=== PATIENT | female | born 1970 | race Caucasian/White ===

== ENCOUNTER 2019-03-16 09:27 | Observation (INO) | payer BC ==
[2019-03-16] MEDS ORDERED: ONDANSETRON 4 MG/2 ML VIAL IVP STA (09:35)
[2019-03-16] MEDS ORDERED: SODIUM CHLORIDE 0.9% 1,000 ML IV STA (09:35)
[2019-03-16] MEDS ORDERED: HYDROmorphone 0.5 MG/0.5 ML SYRINGE IVP STA (09:35)
--- NOTE | 2019-03-16 09:46 | ED ---
Abdominal Pain HPI - General Source: patient, RN notes reviewed Mode of arrival: ambulatory Limitations: no limitations <Maurice Newman - Last Filed: 03/16/19 12:06> <Quinn Mohr - Last Filed: 03/16/19 12:17> - General Chief Complaint: Abdominal Pain Stated Complaint: Abd pain Time Seen by Provider: 03/16/19 09:35 - History of Present Illness Initial Comments: 48-year-old female presents emergency Department chief complaint of right upper quadrant abdominal pain. Patient states she has severe pain since last . Patient was seen at [facility] on Wednesday and was told that she had gallstones. She did have a CAT scan and x-rays. Patient does admit to some dry heaving ongoing nausea. Patient states that she cannot tolerate the pain she's been taking pain meds at home. Patient states pains is unbearable. Patient reports no fevers or chills she states pain radiates into her back and up. Patient had a prior appendectomy and hysterectomy 22 years ago. Patient denies any other complaints. (Maurice Newman) - Related Data Home Medications Medication Instructions Recorded Confirmed HYDROcodone/APAP 7.5-325MG [[place] 1 tab PO Q4H PRN 03/16/19 03/16/19 7.5-325] Ibuprofen [Motrin] 600 mg PO Q6H PRN 03/16/19 03/16/19 Allergies Allergy/AdvReac Type Severity Reaction Status Date / Time No Known Allergies Allergy Verified 03/16/19 09:50 Review of Systems ROS Other: All systems not noted in ROS Statement are negative. <Maurice Newman - Last Filed: 03/16/19 12:06> ROS Other: All systems not noted in ROS Statement are negative. <Quinn Mohr - Last Filed: 03/16/19 12:17> ROS Statement: Those systems with pertinent positive or pertinent negative responses have been documented in the HPI. Past Medical History Past Medical History: No Reported History History of Any Multi-Drug Resistant Organisms: None Reported Past Surgical History: Appendectomy, Hysterectomy Past Psychological History: No Psychological Hx Reported Smoking Status: Former smoker Past Alcohol Use History: None Reported Past Drug Use History: Marijuana <Maurice Newman - Last Filed: 03/16/19 12:06> General Exam Limitations: no limitations General appearance: alert, in no apparent distress Head exam: Present: atraumatic, normocephalic, normal inspection Neck exam: Present: normal inspection. Absent: tenderness, meningismus, lymphadenopathy Respiratory exam: Present: normal lung sounds bilaterally. Absent: respiratory distress, wheezes, rales, rhonchi, stridor Cardiovascular Exam: Present: regular rate, normal rhythm, normal heart sounds. Absent: systolic murmur, diastolic murmur, rubs, gallop, clicks GI/Abdominal exam: Present: soft, tenderness (Moderate right upper quadrant tenderness), normal bowel sounds. Absent: distended, guarding, rebound, rigid Back exam: Absent: CVA tenderness (R), CVA tenderness (L) Skin exam: Present: warm, dry, intact, normal color. Absent: rash <Maurice Newman - Last Filed: 03/16/19 12:06> Course <Quinn Mohr - Last Filed: 03/16/19 12:17> Vital Signs 03/16/19 09:28 Temperature 98.5 F Pulse Rate 89 Respiratory 18 Rate Blood Pressure 204/104 O2 Sat by Pulse 98 Oximetry - Reevaluation(s) Reevaluation #1: 03/16/19 12:16 PA supervision: I proceeded [id number] evaluation the patient and did discuss findings with her and her . Patient does have right upper quadrant pain did have evidence of cholelithiasis. There was a mild dilatation, bile duct of 6.4 mm. I did discuss case with Dr. Alvarez. Patient will be admitted to Dr. Alan's service (Quinn Mohr) Medical Decision Making - Lab Data Result diagrams: 03/16/19 09:49 03/16/19 09:49 <Maurice Newman - Last Filed: 03/16/19 12:06> - Lab Data Result diagrams: 03/16/19 09:49 03/16/19 09:49 <Quinn Mohr - Last Filed: 03/16/19 12:17> - Medical Decision Making 48-year-old female presented for abdominal pain. Patient has had intractable abdominal pain from gallstones. Patient had repeat ultrasound which shows mildly dilated common bile duct, gallstones and fatty liver disease. Dr. Mohr did discuss the case with Dr. Alvarez who will admit the patient (Dedoe,Maurice M) - Lab Data Lab Results 03/16/19 03/16/19 03/16/19 Range/Units 09:49 09:49 09:49 WBC 7.0 (3.8-10.6) k/uL RBC 5.16 (3.80-5.40) m/uL Hgb 16.1 H (11.4-16.0) gm/dL Hct 46.9 H (34.0-46.0) % MCV 90.9 (80.0-100.0) fL MCH 31.2 (25.0-35.0) pg MCHC 34.3 (31.0-37.0) g/dL RDW 13.0 (11.5-15.5) % Plt Count 224 (150-450) k/uL Neutrophils % 62 % Lymphocytes % 30 % Monocytes % 4 % Eosinophils % 2 % Basophils % 1 % Neutrophils # 4.3 (1.3-7.7) k/uL Lymphocytes # 2.1 (1.0-4.8) k/uL Monocytes # 0.3 (0-1.0) k/uL Eosinophils # 0.1 (0-0.7) k/uL Basophils # 0.0 (0-0.2) k/uL Sodium 142 (137-145) mmol/L Potassium 4.4 (3.5-5.1) mmol/L Chloride 105 (98-107) mmol/L Carbon Dioxide 29 (22-30) mmol/L Anion Gap 8 mmol/L BUN 14 (7-17) mg/dL Creatinine 0.76 (0.52-1.04) mg/dL Est GFR (CKD-EPI)AfAm >90 (>60 ml/min/1.73 sqM) Est GFR (CKD-EPI)NonAf >90 (>60 ml/min/1.73 sqM) Glucose 128 H (74-99) mg/dL Plasma Lactic Acid Jon 1.3 (0.7-2.0) mmol/L Calcium 10.2 (8.4-10.2) mg/dL Total Bilirubin 0.6 (0.2-1.3) mg/dL AST 23 (14-36) U/L ALT 34 (9-52) U/L Alkaline Phosphatase 62 (38-126) U/L Total Protein 7.8 (6.3-8.2) g/dL Albumin 4.7 (3.5-5.0) g/dL Amylase 75 (30-110) U/L Lipase 100 (23-300) U/L Urine Color Urine Appearance (Clear) Urine pH (5.0-8.0) Ur Specific [place] (1.001-1.035) Urine Protein (Negative) Urine Glucose (UA) (Negative) Urine Ketones (Negative) Urine Blood (Negative) Urine Nitrite (Negative) Urine Bilirubin (Negative) Urine Urobilinogen (<2.0) mg/dL Ur Leukocyte Esterase (Negative) Urine RBC (0-5) /hpf Urine WBC (0-5) /hpf Ur Squamous Epith Cells (0-4) /hpf Urine Mucus (None) /hpf 03/16/19 Range/Units 09:49 WBC (3.8-10.6) k/uL RBC (3.80-5.40) m/uL Hgb (11.4-16.0) gm/dL Hct (34.0-46.0) % MCV (80.0-100.0) fL MCH (25.0-35.0) pg MCHC (31.0-37.0) g/dL RDW (11.5-15.5) % Plt Count (150-450) k/uL Neutrophils % % Lymphocytes % % Monocytes % % Eosinophils % % Basophils % % Neutrophils # (1.3-7.7) k/uL Lymphocytes # (1.0-4.8) k/uL Monocytes # (0-1.0) k/uL Eosinophils # (0-0.7) k/uL Basophils # (0-0.2) k/uL Sodium (137-145) mmol/L Potassium (3.5-5.1) mmol/L Chloride (98-107) mmol/L Carbon Dioxide (22-30) mmol/L Anion Gap mmol/L BUN (7-17) mg/dL Creatinine (0.52-1.04) mg/dL Est GFR (CKD-EPI)AfAm (>60 ml/min/1.73 sqM) Est GFR (CKD-EPI)NonAf (>60 ml/min/1.73 sqM) Glucose (74-99) mg/dL Plasma Lactic Acid Jon (0.7-2.0) mmol/L Calcium (8.4-10.2) mg/dL Total Bilirubin (0.2-1.3) mg/dL AST (14-36) U/L ALT (9-52) U/L Alkaline Phosphatase (38-126) U/L Total Protein (6.3-8.2) g/dL Albumin (3.5-5.0) g/dL Amylase (30-110) U/L Lipase (23-300) U/L Urine Color Yellow Urine Appearance Clear (Clear) Urine pH 6.5 (5.0-8.0) Ur Specific [place] 1.022 (1.001-1.035) Urine Protein Trace H (Negative) Urine Glucose (UA) Negative (Negative) Urine Ketones Negative (Negative) Urine Blood Small H (Negative) Urine Nitrite Negative (Negative) Urine Bilirubin Negative (Negative) Urine Urobilinogen <2.0 (<2.0) mg/dL Ur Leukocyte Esterase Negative (Negative) Urine RBC 8 H (0-5) /hpf Urine WBC <1 (0-5) /hpf Ur Squamous Epith Cells 6 H (0-4) /hpf Urine Mucus Rare H (None) /hpf Disposition <Maurice Newman - Last Filed: 03/16/19 12:06> <Quinn Mohr - Last Filed: 03/16/19 12:17> Clinical Impression: Intractable abdominal pain, Cholelithiasis Disposition: ADMITTED IP TO THIS HOSP Condition: Stable Referrals: Quinn Lambert MD [Primary Care Provider] - 1-2 days
[2019-03-16 10:07] LABS: Basophils % (A) 1 %; Eosinophils # (A) 0.1 k/uL (0-0.7); Eosinophils % (A) 2 %; HCT 46.9 % (34.0-46.0); HGB 16.1 gm/dL (11.4-16.0); Lymphocytes # (A) 2.1 k/uL (1.0-4.8); Lymphocytes % (A) 30 %; MCH 31.2 pg (25.0-35.0); MCHC 34.3 g/dL (31.0-37.0); MCV 90.9 fL (80.0-100.0); Mean Platelet Volume 7.6; Monocytes # (A) 0.3 k/uL (0-1.0); Monocytes % (A) 4 %; Neutrophils # (A) 4.3 k/uL (1.3-7.7); Neutrophils % (A) 62 %; Platelet Count 224 k/uL (150-450); RBC 5.16 m/uL (3.80-5.40)
[2019-03-16 10:16] LABS: Appearance,Urine Clear (Clear); Bilirubin,Urine Negative (Negative); Blood,Urine Small (Negative); Color,Urine Yellow; Glucose,Urine (UA) Negative (Negative); Ketones,Urine Negative (Negative); Leukocyte Esterase,Urine Negative (Negative); Mucus,Urine Rare /hpf; Nitrite,Urine Negative (Negative); PH, Urine 6.5 (5.0-8.0); Protein,Urine Trace (Negative); RBC,Urine 8 /hpf (0-5); Specific Gravity,Urine 1.022 (1.001-1.035); Squamous Epithelial Cell,Urine 6 /hpf (0-4); Urobilinogen,Urine <2.0 mg/dL (<2.0)
[2019-03-16 10:20] LABS: ALT 34 U/L (9-52); AST 23 U/L (14-36); Albumin 4.7 g/dL (3.5-5.0); Alkaline Phosphatase 62 U/L (38-126); Amylase 75 U/L (30-110); Anion Gap 8 mmol/L; Blood Urea Nitrogen 14 mg/dL (7-17); Calcium 10.2 mg/dL (8.4-10.2); Carbon Dioxide 29 mmol/L (22-30); Chloride 105 mmol/L (98-107); Glucose 128 mg/dL (74-99); Lipase 100 U/L (23-300); Potassium 4.4 mmol/L (3.5-5.1); Sodium 142 mmol/L (137-145); Total Bilirubin 0.6 mg/dL (0.2-1.3); Total Protein 7.8 g/dL (6.3-8.2)
--- NOTE | 2019-03-16 11:04 | US ---
EXAMINATION TYPE: US gallbladder DATE OF EXAM: 03/16/2019 COMPARISON: NONE CLINICAL HISTORY: 48-year-old female Pain. Epigastric and RUQ pain x 1 day. Hx appendectomy. TECHNIQUE: Multiple sonographic images of the right upper quadrant are obtained. FINDINGS: EXAM MEASUREMENTS: Liver Length: 19.4 cm Gallbladder Wall: 0.29 cm CBD: 0.64 cm Right Kidney: 11.7 x 7.5 x 5.6 cm Appeals And Generalist Clerk notes:Limited due to body habitus and overlying gas. Pancreas: Limited due to gas. Liver: Enlarged. Markedly increased echogenicity and far field attenuation. This secondarily limits a ssessment for focal lesion. Gallbladder: 1.9 cm dependent gallstone with shadowing. No abnormal gallbladder distention or surroun ding fluid. Gallbladder wall thickness is 2.9 mm, upper limits of normal. Evidence for sonographic Gama's sign: Yes CBD: Borderline distended. Right Kidney: No hydronephrosis. IMPRESSION: 1. Hepatomegaly (19.4 cm) with severe hepatic steatosis. Correlate with LFTs, lipid profile, and kenyatta ent risk factors. 2. Bile duct is borderline to mildly dilated at 6.4 mm. Correlate with alkaline phosphatase and bilir ubin levels. 3. Cholelithiasis. No ancillary findings of acute cholecystitis. However, sonographic Gama sign is reported positive. This could reflect referred pain. If concern for early acute cholecystitis, follow -up HIDA scan.
[2019-03-16] MEDS ORDERED: NALOXONE 0.4 MG/ML 1 ML VIAL IV PRN (12:08)
[2019-03-16] MEDS ORDERED: HYDROmorphone 1 MG/ML 1 ML SYRINGE IVP PRN (12:08)
[2019-03-16] MEDS ORDERED: HYDROmorphone 0.5 MG/0.5 ML SYRINGE IVP PRN (12:08)
[2019-03-16] MEDS ORDERED: DEXAMETHASONE SOD PHOS (MDV) 100 MG/10 ML VIAL IV ONE (12:08)
[2019-03-16] MEDS ORDERED: ONDANSETRON 4 MG/2 ML VIAL IVP PRN ×2 (12:08→13:03)
[2019-03-16] MEDS ORDERED: PIPERACILLIN-TAZOBACTAM 3.375 GM in SODIUM CHLORIDE 0.9% 100 ML IVPB STA (12:09)
[2019-03-16] MEDS ORDERED: SCOPOLAMINE 1.5MG/72HR PATCH TRANSDERM ONE (12:10)
[2019-03-16] MEDS ORDERED: LACTATED RINGERS 1,000 ML IV ONE (12:48)
[2019-03-16] MEDS ORDERED: DEXAMETHASONE SOD PHOSPHATE 10 MG/ML 1 ML VIAL IV ONE (13:03)
[2019-03-16] MEDS ORDERED: LIDOCAINE 1% 20 ML VIAL (10MG/ML) FOR IV START INTRADERMA PRN (13:03)
[2019-03-16] MEDS ORDERED: SCOPOLAMINE 1.5MG/72HR PATCH TRANSDERM STA (13:05)
[2019-03-16] MEDS ORDERED: HEPARIN SODIUM,PORCINE 5,000 UNIT/ML 1 ML VIAL SQ ONE (13:15)
[2019-03-16] MEDS ORDERED: fentaNYL (PF) 50 MCG/ML 2 ML AMP IV ONE (13:21)
[2019-03-16] MEDS ORDERED: HYDROmorphone (PF) 1 MG/ML ONE (14:00)
[2019-03-16] MEDS ORDERED: MIDAZOLAM 2 MG/2 ML VIAL ONE (14:00)
[2019-03-16] MEDS ORDERED: NEOSTIGMINE 1 MG/ML 10 ML VIAL ONE (14:00)
[2019-03-16] MEDS ORDERED: GLYCOPYRROLATE 0.2 MG/ML 2 ML VIAL ONE (14:00)
[2019-03-16] MEDS ORDERED: fentaNYL (PF) 50 MCG/ML 2 ML AMP ONE (14:00)
[2019-03-16] MEDS ORDERED: ceFAZolin 1,000 MG VIAL ONE (14:00)
[2019-03-16] MEDS ORDERED: PROPOFOL 10 MG/ML 20 ML VIAL IV ONE (14:00)
[2019-03-16] MEDS ORDERED: LIDOCAINE 1% INJ 10MG/ML (20 ML MDV) ONE (14:00)
[2019-03-16] MEDS ORDERED: ROCURONIUM BROMIDE 10 MG/ML 10 ML VIAL IV ONE (14:00)
--- NOTE | 2019-03-16 14:02 | P.GSHP ---
History of Present Illness H&P Date: 03/16/19 Chief Complaint: Acute calculus cholecystitis 48-year-old female comes in the hospital today with increasing pain right upper quadrant. Pain began last . Last Wednesday she went to the emergency room at [facility]. She was found to have gallstones at that time. She says her pain did not really improve much over the last several days. Pain is under the right rib cage. Radiation to the back. Some nausea. Decreased appetite. No fevers. Labs checked are fairly normal. Repeat ultrasound shows a thickened wall with a positive Gama signs with gallstones. Fatty liver noted. Patient is not interested in going home and would like this addressed at this time. - Review of Systems Comment: The patient denies any acute changes in vision or hearing, no dysphagia or odynophagia, no chest pain or shortness of breath, no dysuria or hematuria, no headache, no runny nose, no rectal bleeding or melena, no unexplained weight loss Past Medical History Past Medical History: No Reported History Additional Past Medical History / Comment(s): L ankle cartlidge worn-wears a brace. History of Any Multi-Drug Resistant Organisms: None Reported Past Surgical History: Appendectomy, Hysterectomy Additional Past Surgical History / Comment(s): Colonoscopy Past Anesthesia/Blood Transfusion Reactions: No Reported Reaction Smoking Status: Former smoker - Past Family History Mother Family Medical History: Cancer Additional Family Medical History / Comment(s): Mother of renal carcinoma at the age of 72 yrs. Father Family Medical History: Skin Disorder Additional Family Medical History / Comment(s): Father of cellulitis at the age of 81 yrs. Medications and Allergies Home Medications Medication Instructions Recorded Confirmed Type HYDROcodone/APAP 7.5-325MG [[place] 1 tab PO Q4H PRN 03/16/19 03/16/19 History 7.5-325] Ibuprofen [Motrin] 600 mg PO Q6H PRN 03/16/19 03/16/19 History Allergies Allergy/AdvReac Type Severity Reaction Status Date / Time No Known Allergies Allergy Verified 03/16/19 09:50 Surgical - Exam Vital Signs Temp Pulse Resp BP Pulse Ox 98.5 F 89 18 204/104 98 03/16/19 09:28 03/16/19 09:28 03/16/19 09:28 03/16/19 09:28 03/16/19 09:28 Physical exam: General: Well-developed, well-nourished HEENT: Normocephalic, sclerae nonicteric Abdomen: Obese, right upper quadrant tenderness, Gama sign present, nondistended Extremities: No edema Neuro: Alert and oriented Results - Labs 03/16/19 09:49 03/16/19 09:49 Abnormal Lab Results - Last 24 Hours (Table) 03/16/19 03/16/19 03/16/19 Range/Units 09:49 09:49 09:49 Hgb 16.1 H (11.4-16.0) gm/dL Hct 46.9 H (34.0-46.0) % Glucose 128 H (74-99) mg/dL Urine Protein Trace H (Negative) Urine Blood Small H (Negative) Urine RBC 8 H (0-5) /hpf Ur Squamous Epith Cells 6 H (0-4) /hpf Urine Mucus Rare H (None) /hpf Diabetes panel 03/16/19 Range/Units 09:49 Sodium 142 (137-145) mmol/L Potassium 4.4 (3.5-5.1) mmol/L Chloride 105 (98-107) mmol/L Carbon Dioxide 29 (22-30) mmol/L BUN 14 (7-17) mg/dL Creatinine 0.76 (0.52-1.04) mg/dL Glucose 128 H (74-99) mg/dL Calcium 10.2 (8.4-10.2) mg/dL AST 23 (14-36) U/L ALT 34 (9-52) U/L Alkaline Phosphatase 62 (38-126) U/L Total Protein 7.8 (6.3-8.2) g/dL Albumin 4.7 (3.5-5.0) g/dL Calcium panel 03/16/19 Range/Units 09:49 Calcium 10.2 (8.4-10.2) mg/dL Albumin 4.7 (3.5-5.0) g/dL Pituitary panel 03/16/19 Range/Units 09:49 Sodium 142 (137-145) mmol/L Potassium 4.4 (3.5-5.1) mmol/L Chloride 105 (98-107) mmol/L Carbon Dioxide 29 (22-30) mmol/L BUN 14 (7-17) mg/dL Creatinine 0.76 (0.52-1.04) mg/dL Glucose 128 H (74-99) mg/dL Calcium 10.2 (8.4-10.2) mg/dL Adrenal panel 03/16/19 Range/Units 09:49 Sodium 142 (137-145) mmol/L Potassium 4.4 (3.5-5.1) mmol/L Chloride 105 (98-107) mmol/L Carbon Dioxide 29 (22-30) mmol/L BUN 14 (7-17) mg/dL Creatinine 0.76 (0.52-1.04) mg/dL Glucose 128 H (74-99) mg/dL Calcium 10.2 (8.4-10.2) mg/dL Total Bilirubin 0.6 (0.2-1.3) mg/dL AST 23 (14-36) U/L ALT 34 (9-52) U/L Alkaline Phosphatase 62 (38-126) U/L Total Protein 7.8 (6.3-8.2) g/dL Albumin 4.7 (3.5-5.0) g/dL Assessment and Plan (1) Acute calculous cholecystitis Narrative/Plan: Options reviewed with the patient and her . We'll proceed with laparoscopic, possible open cholecystectomy at this time. Continue antibiotics. Repeat labs tomorrow. Risks of bleeding, infection, bile leak, bile duct injury, retained common bile duct stone, trocar injury, conversion to an open pr ocedure, hernia, anesthesia related complications were reviewed. The patient understands and wishes to proceed. Current Visit: Yes Status: Acute Code(s): K80.00 - CALCULUS OF GALLBLADDER W ACUTE CHOLECYST W/O OBSTRUCTION SNOMED Code(s): 82207338634492
[2019-03-16] MEDS ORDERED: SODIUM CHLORIDE 0.9% 150 ML with ceFAZolin 3,000 MG IV ONE ×2 (14:10)
[2019-03-16] MEDS ORDERED: BUPIVACAIN-EPI 0.5%-1:200,000 30 ML VIAL SQ ONE ×2 (14:40→15:04)
[2019-03-16] MEDS ORDERED: HYDROcodone/APAP 5-325MG 1 EACH TAB PO PRN (15:19)
--- NOTE | 2019-03-16 15:21 | P.OP ---
Date of Procedure: 03/16/19 Procedure(s) Performed: PREOPERATIVE DIAGNOSIS: Acute calculus cholecystitis POSTOPERATIVE DIAGNOSIS: Same PROCEDURE: Laparoscopic cholecystectomy SURGEON: Kim EBL: Minimal see anesthesia record ANESTHESIA: Gen. COMPLICATIONS: None OPERATIVE PROCEDURE: The patient was brought and placed on the operating room table in the supine position. The patient was placed under general anesthesia at that time. The abdomen was prepped and draped in the usual sterile fashion. A small horizontal supraumbilical incision was made. The fascia was grasped with the Minoo forceps. The fascia was retracted anteriorly. The Veress needle was advanced into the peritoneal cavity. The saline drop test was normal. Insufflation took place up to 15 mmHg. A 5 mm optical trocar was advanced and the peritoneal cavity. 2 additional 5 mm trochars were placed in the right upper quadrant under direct visualization. A 12 mm trocar was advanced into the epigastric incision site. The gallbladder was acutely inflamed with a thickened wall. The patient's liver was somewhat enlarged without nodularity. The gallbladder was retracted superiorly and laterally. The peritoneum overlying the infundibulum was bluntly dissected. The patient's cystic duct was visualized. The junction between the cystic duct common and hepatic duct was identified. The cystic duct was then divided after placement of 3 12 mm clips on the patient's side and one on the specimen side. The cystic artery was identified and clipped as well. A small vessel was seen along the gallbladder fossa and clipped as well. The gallbladder was then removed from the liver bed using electrocautery. The gallbladder was then removed from the epigastric trocar site with an Endo Catch bag. The gallbladder fossa was irrigated with saline. There was no evidence of any bleeding or biliary drainage seen. The fascia at the 12 millimeter site was closed using a Gabe- Jc 0 Vicryl stitch. The trochars were then removed. The skin at all 4 sites was closed using a 4-0 Monocryl stitch. Skin glue was utilized on the incision sites. At the end of this procedure the sponge and needle counts were correct. DISPOSITION: Stable to the recovery room
[2019-03-16 15:39] VITALS: BMI 43.8
[2019-03-16] MEDS ORDERED: KETOROLAC 30 MG/ML 1 ML VIAL IVP ONE (15:41)
[2019-03-16] MEDS: LABETALOL SYRINGE 5 MG/ML IVP ONE ×2 (15:51→16:04)
[2019-03-16] MEDS: HYDROmorphone 0.5 MG/0.5 ML SYRINGE IVP PRN ×2 (15:51→15:57)
[2019-03-16] MEDS: SODIUM CHLORIDE 0.9% 1,000 ML IV SCH ×2 (17:13→21:19)
[2019-03-16] MEDS: KETOROLAC 30 MG/ML 1 ML VIAL IVP SCH ×2 (17:17→23:12)
[2019-03-16] MEDS ORDERED: METOCLOPRAMIDE 5 MG/ML 2 ML VIAL IM PRN (19:31)
[2019-03-16] MEDS ORDERED: METOCLOPRAMIDE 5 MG/ML 2 ML VIAL IVP PRN (19:38)
[2019-03-16] MEDS: LISINOPRIL-HCTZ 10-12.5 MG 1 EACH TAB PO SCH (22:12)
[2019-03-17] MEDS: KETOROLAC 30 MG/ML 1 ML VIAL IVP SCH ×2 (06:22→13:14)
[2019-03-17] MEDS: LISINOPRIL-HCTZ 10-12.5 MG 1 EACH TAB PO SCH (07:19)
[2019-03-17] MEDS: SODIUM CHLORIDE 0.9% 1,000 ML IV SCH (07:20)
--- NOTE | 2019-03-17 08:20 | CONS ---
CONSULTATION DATE OF CONSULTATION: 03/16/2019 REASON FOR CONSULTATION: Medical management requested by Dr. Alvarez. CONSULTATION: This is a pleasant 48-year-old patient who follows with Dr. Quinn Lambert. Chronic stable medical conditions include a left ankle cartilage strain from multiple surgeries in the past, obesity. Patient 1 week ago started with right upper quadrant pain that went to the back, rather severe. The patient went down to [facility], she was discharged from there. The patient did follow up with a family doctor, told to follow up with GI, but no recent appointment was available. Patient started having more pain with nausea, did go back to her family doctor, told them to go down to the ER as these pain was worsening. There was no fever. No chills. No change in bowel habit. Patient underwent gallbladder ultrasound and was found to have a mildly dilated bile duct with gallstones and also some hepatic steatosis. The patient subsequently underwent a lap cholecystectomy. Post procedure. lying in bed. Pain is controlled. Patient's blood pressure is noted to be high by the nurse with automatic blood pressure cuff. Patient does not remember having any high blood pressure previously. REVIEW OF SYSTEMS: CONSTITUTIONAL: Tired. HEENT: None. RESPIRATORY: None. CARDIOVASCULAR: None. Gastrointestinal: As above. GENITOURINARY: None. MUSCULOSKELETAL: Chronic left ankle pain. DERMATOLOGICAL: None. HEMATOLOGIC: None. LYMPHATIC: None. PSYCHIATRY: None. NEUROLOGICAL: None. PAST MEDICAL HISTORY: Left ankle cartilage, wears a brace. PAST SURGICAL HISTORY: Appendectomy, hysterectomy, colonoscopy. SOCIAL HISTORY: The patient smoked for about 20 years, stopped in 2006. Does marijuana occasionally. Retired. Does work in a coffee shop. . FAMILY HISTORY: Mother had renal carcinoma. HOME MEDICATIONS: Motrin 600 mg q.6 p.r.n., [place] 7.5 one tablet q.4 p.r.n. ALLERGIES: None. PHYSICAL EXAMINATION: Vital signs on presentation temperature 98.5, pulse 89, respiration 18, blood pressure 204/104, pulse ox 98% on room air. Repeat blood pressure right now is 167/90. GENERAL APPEARANCE: Well built; BMI of 43.9. Propped up, sitting up, watching television. EYES: Pupils equal, conjunctivae normal. HEENT: External appearance of nose and ears normal. Oral cavity normal. NECK: JVD not raised. Mass not palpable. RESPIRATORY: Effort normal. LUNGS: Clear. CARDIOVASCULAR: First and second sounds normal. No edema. ABDOMEN: Mild tenderness, no guarding or rigidity. Liver and spleen not palpable. LYMPHATIC: No lymph nodes palpable in the neck or axilla. PSYCHIATRY: Alert and oriented x3. Mood and affect normal. NEUROLOGICAL: Pupils equal. Cranial nerves grossly intact. Power and sensation grossly intact. INVESTIGATIONS: White count 7, hemoglobin 16.1, potassium 4.4. BUN and creatinine are normal. Abdominal ultrasound as above. ASSESSMENT: 1. Symptomatic cholelithiasis followed by cholecystectomy. 2. Severe hepatic steatosis. Will have the patient follow up with GI as an outpatient. May need metformin. 3. Morbid obesity, body mass index of 43.9. 4. Possible essential hypertension. PLAN: Will Start the patient on lisinopril/hydrochlorothiazide 08/19.5 starting now. Otherwise patient's pain is controlled. The patient is to see a dietitian as an outpatient. Will also have the patient follow up with GI with hepatic steatosis. Thank you, Dr. Alvarez. MMYADIRAL / ABDELRAHMANN: [id number] /
[2019-03-17 09:52] LABS: Basophils % (A) 0 %; Eosinophils # (A) 0.1 k/uL (0-0.7); Eosinophils % (A) 1 %; HCT 38.1 % (34.0-46.0); HGB 13.3 gm/dL (11.4-16.0); Lymphocytes # (A) 1.4 k/uL (1.0-4.8); Lymphocytes % (A) 12 %; MCHC 34.8 g/dL (31.0-37.0); MCV 91.9 fL (80.0-100.0); Mean Platelet Volume 7.9; Monocytes # (A) 0.8 k/uL (0-1.0); Monocytes % (A) 7 %; Neutrophils # (A) 9.3 k/uL (1.3-7.7); Neutrophils % (A) 79 %; Platelet Count 211 k/uL (150-450); RBC 4.15 m/uL (3.80-5.40); RDW 13.2 % (11.5-15.5); WBC 11.7 k/uL (3.8-10.6)
[2019-03-17 10:00] LABS: ALT 46 U/L (9-52); AST 39 U/L (14-36); Alkaline Phosphatase 45 U/L (38-126); Anion Gap 10 mmol/L; Blood Urea Nitrogen 16 mg/dL (7-17); Carbon Dioxide 23 mmol/L (22-30); Chloride 105 mmol/L (98-107); Glucose 128 mg/dL (74-99); Potassium 4.1 mmol/L (3.5-5.1); Sodium 138 mmol/L (137-145); Total Bilirubin 0.4 mg/dL (0.2-1.3); Total Protein 6.6 g/dL (6.3-8.2)
--- NOTE | 2019-03-17 13:13 | P.DS ---
Providers Date of admission: 03/16/19 12:16 Expected date of discharge: 03/17/19 Attending physician: Harshad Alvarez Consults: 03/16/19 17:42 Consult Physician Routine Consulting Provider: Raj Wiley Consult Reason/Comments: medical management Do you want consulting provider notified?: Yes Primary care physician: Quinn Lambert - Discharge Diagnosis(es) (1) Acute calculous cholecystitis Patient admitted for acute cholecystitis. Doing well at this time. Underwent laparoscopic cholecystectomy last night. Pain is dramatically improved. Her labs look improved. She is anxious to go home. Vitals of been stable this morning. She was hypertensive last night but that is improved. Incisions are clean and dry. Minimal tenderness. Will discharge with plans for outpatient follow-up in 1 week. Current Visit: Yes Status: Acute Patient Condition at Discharge: Stable Plan - Discharge Summary Discharge Rx Participant: No New Discharge Prescriptions: No Action Ibuprofen [Motrin] 600 mg PO Q6H PRN PRN Reason: Pain HYDROcodone/APAP 7.5-325MG [[place] 7.5-325] 1 tab PO Q4H PRN PRN Reason: Pain Discharge Medication List HYDROcodone/APAP 7.5-325MG [[place] 7.5-325] 1 tab PO Q4H PRN 03/16/19 [History] Ibuprofen [Motrin] 600 mg PO Q6H PRN 03/16/19 [History] Follow up Appointment(s)/Referral(s): Quinn Lambert MD [Primary Care Provider] - 1-2 days Dallin Wilcox MD [STAFF PHYSICIAN] - 2 Weeks (hepatic steatosis)
[2019-03-17 14:23] VITALS: BP 137/77; PULSE 63; RESP 16; TEMP 98.4
--- NOTE | 2019-03-18 12:37 | PN ---
PROGRESS NOTE DATE OF SERVICE: 03/17/2019 PRESENTING COMPLAINT: Abdominal pain. INTERVAL HISTORY: Patient is status post cholecystectomy. I saw the patient on 03/17/2019 morning. Very slight pain. Doing well. Tolerating a diet. Has been out of bed. No nausea or vomiting. REVIEW OF SYSTEMS: Done for constitutional, cardiovascular, GI, pulmonary; relevant findings as above. CURRENT MEDICATIONS: Current medications are reviewed. PHYSICAL EXAMINATION: On examination, temperature 98.9, pulse 96, respiration 20, blood pressure 111/69, pulse ox 98% on 2 L. GENERAL APPEARANCE: Lying in bed, comfortable. EYES: Pupils equal. Conjunctivae normal. Neck: JVD not raised. Mass not palpable. RESPIRATORY: Effort normal. LUNGS: Are clear. CARDIOVASCULAR: First and second sounds normal. No edema. ABDOMEN: Minimal tenderness, soft. Liver and spleen not palpable. PSYCHIATRY: Alert and oriented x3. Mood and affect normal. INVESTIGATIONS: White count 11.7, hemoglobin 13.3. ASSESSMENT: 1. Symptomatic cholelithiasis followed by cholecystectomy. 2. Severe hepatic steatosis to follow up with GI. 3. Morbid obesity, body mass index 43.9. 4. Essential hypertension. PLAN: We will prescribe the patient lisinopril hydrochlorothiazide. The patient should follow with family doctor upon discharge. MMODL / IJN: [id number] /
== END 2019-03-17 14:11 | disposition home or self-care (01) ==
LOC: EC 09:27 → 4MS4W 12:16
PROVIDERS: ADMIT Surgery; ATTEND Surgery
DX: K80.12 Calculus of gallbladder with acute and chronic cholecystitis without obstruction (principal); K76.0 Fatty (change of) liver, not elsewhere classified; M25.572 Pain in left ankle and joints of left foot; G89.29 Other chronic pain; I10 Essential (primary) hypertension; E66.01 Morbid (severe) obesity due to excess calories; Z68.41 Body mass index [BMI] 40.0-44.9, adult; Z87.891 Personal history of nicotine dependence; Z90.710 Acquired absence of both cervix and uterus; Z80.51 Family history of malignant neoplasm of kidney
CPT/HCPCS: 47562; 96361; 96374; 96375; 99285; 36415; 88304; 80053 ×2; 82150; 83605; 83690; 85025 ×2; 81001; 76705; G0378 ×2; J2250; J1644; J2710; J2765; J2405; J0690; J2001; J3010; J1885 ×2; J1170 ×2; J1100; J2704